=== PATIENT | female | born 1990 ===

== ENCOUNTER 2018-01-23 08:35 | Outpatient (CLI) | payer OTHER ==
--- NOTE | 2018-01-23 09:31 | Ultrasound Report ---
LEFT BREAST ULTRASOUND: 01/23/18 08:35:00 CLINICAL: 27-year-old with a an upper outer breast lump COMPARISON: None. FINDINGS: Ultrasoundof the upper outer quadrant of the left breast was performed and demonstrated normal fibroglandular and fatty structures. No mass, cyst or shadowing. I examined her myself and felt lumpy but normal breast tissue. IMPRESSION: Negative left breast ultrasound. BI-RADS 1 - - Negative RECOMMENDATION: Clinical followup and routine mammographic screening baseline ACS guidelines.
== END 2018-01-23 08:36 | disposition home or self-care (01) ==
LOC: SPVWC 08:35
PROVIDERS: ATTEND Nurse Practitioner Family
DX: N63.21 Unspecified lump in the left breast, upper outer quadrant (principal); R19.00 Intra-abdominal and pelvic swelling, mass and lump, unspecified site

== ENCOUNTER 2020-07-16 16:22 | Emergency (ER) | payer OTHER ==
[2020-07-16 16:36] VITALS: BP 110/79
--- NOTE | 2020-07-16 17:40 | Emergency Department Report ---
ED Head Trauma HPI - General Chief complaint: Head Injury Stated complaint: FELL DOWN STAIRS/HIT HEAD Time Seen by Provider: 07/16/20 17:24 Source: patient Mode of arrival: Ambulatory Limitations: No Limitations - History of Present Illness Initial comments: pt is a 30 yo female who presents to the ED with c/o hitting her head around 3:30 PM today. she states she was walking down the steps in her house. she states she accidentally misstepped on the very last step and hit her head on the stairs. she states she was able to get up and ambulate immediately. she states she took a tylenol for a mild headache and her symptoms improved. she denies any LOC, n/v, vision changes, photophobia, numbness, weakness, bowel or bladder incontinence, speech disturbance, gait disturbance, neck pain or back pain. no pmhx. no allergies to meds. LNMP 06/26/2020. she states she presents just to make sure she did not have a "concussion." - Related Data Previous Rx's Medication Instructions Recorded Last Taken Type Ferrous Sulfate [Feosol 325 MG tab] 325 mg PO BID #90 tablet 06/13/19 Unknown Rx Ibuprofen [Motrin 800 MG tab] 800 mg PO TID PRN #30 tablet 06/13/19 Unknown Rx oxyCODONE /ACETAMINOPHEN [Percocet 1 - 2 tab PO Q6HR PRN #14 tablet 06/13/19 Unknown Rx 5/325 mg] Allergies/Adverse reactions: Allergies Allergy/AdvReac Type Severity Reaction Status Date / Time No Known Allergies Allergy Verified 07/16/20 16:32 ED Review of Systems ROS: Stated complaint: FELL DOWN STAIRS/HIT HEAD Other details as noted in HPI Comment: All other systems reviewed and negative ED Past Medical Hx - Past Medical History Hx Hypertension: No Hx Congestive Heart Failure: No Hx Diabetes: No Hx Deep Vein Thrombosis: No Hx Renal Disease: No Hx Sickle Cell Disease: No Hx Seizures: No Hx Asthma: No Hx COPD: No Hx HIV: No - Social History Smoking Status: Never Smoker Substance Use Type: None - Medications Home Medications: Home Medications Medication Instructions Recorded Confirmed Last Taken Type Ferrous Sulfate [Feosol 325 MG tab] 325 mg PO BID #90 tablet 06/13/19 Unknown Rx Ibuprofen [Motrin 800 MG tab] 800 mg PO TID PRN #30 tablet 06/13/19 Unknown Rx oxyCODONE /ACETAMINOPHEN [Percocet 1 - 2 tab PO Q6HR PRN #14 tablet 06/13/19 Unknown Rx 5/325 mg] ED Physical Exam - General Limitations: No Limitations General appearance: alert, in no apparent distress - Head Head exam: Present: atraumatic, normocephalic - Eye Eye exam: Present: normal appearance, PERRL, EOMI. Absent: periorbital swelling, periorbital tenderness Pupils: Present: normal accommodation, other (no raccoon eyes) - ENT ENT exam: Present: mucous membranes moist, other (no flores signs ) - Neck Neck exam: Present: normal inspection, full ROM. Absent: tenderness - Respiratory Respiratory exam: Present: normal lung sounds bilaterally. Absent: respiratory distress, wheezes, rales, rhonchi, stridor, chest wall tenderness, accessory muscle use, decreased breath sounds, prolonged expiratory - Cardiovascular Cardiovascular Exam: Present: regular rate, normal rhythm, normal heart sounds. Absent: systolic murmur, diastolic murmur, rubs, gallop - Back Exam Back exam: Present: normal inspection, full ROM. Absent: paraspinal tenderness, vertebral tenderness - Neurological Exam Neurological exam: Present: alert, oriented X3, CN II-XII intact, normal gait. Absent: motor sensory deficit - Expanded Neurological Exam Expanded Patient oriented to: Present: person, place, time Speech: Present: fluid speech Cranial nerves: EOM's Intact: Normal, Gag Reflex: Normal, Tongue Deviation: Normal, Facial Sensation: Normal Cerebellar function: Finger to Nose: Normal, Heel to Mustafa: Normal, Romberg: Normal Sensory exam: Upper Extremity Light Touch: Normal, Upper Extremity Pin Prick: Normal, Upper Extremity Temperature: Normal, UE 2 Point Discrimination: Normal, Lower Extremity Light Touch: Normal, Lower Extremity Pin Prick: Normal, Lower Extremity Temperature: Normal, LE 2 Point Discrimination: Normal Motor strength exam: RUE: 5, LUE: 5, RLE: 5, LLE: 5 Best Eye Response ([place]): (4) open spontaneously Best Motor Response ([place]): (6) obeys commands Best Verbal Response ([place]): (5) oriented [place] Total: 15 - Psychiatric Psychiatric exam: Present: normal affect, normal mood - Skin Skin exam: Present: warm, dry, intact ED Course Vital Signs 07/16/20 16:32 Temperature 98.3 F Pulse Rate 87 Respiratory 20 Rate Blood Pressure 110/79 O2 Sat by Pulse 100 Oximetry - Medical Decision Making pt is a 30 yo female who presents to the ED with c/o hitting her head around 3:30 PM today. she states she was walking down the steps in her house. she states she accidentally misstepped on the very last step and hit her head on the stairs. she states she was able to get up and ambulate immediately. she states she took a tylenol for a mild headache and her symptoms improved. she denies any LOC, n/v, vision changes, photophobia, numbness, weakness, bowel or bladder incontinence, speech disturbance, gait disturbance, neck pain or back pain. no pmhx. no allergies to meds. LNMP 06/26/2020. she states she presents just to make sure she did not have a "concussion." Vitals are normal. No abnormality physical exam as documented in chart, no neurological deficits. [place] CT head rule is 0, CT head imaging is recommended. Nexus criteria negative, C- spine can be cleared clinically. This is likely related to a mild/minor head injury. No signs of hematoma. No signs of basilar skull fracture. Do not suspect intercranial hemorrhage. Patient observed in the emergency department and given juice and was able to tolerate p.o. intake without difficulty, she states that she is feeling fine and ready to go home, she has not had any changes since being observed in the ED. Discussed very strict return precautions in detail with patient. Advised patient may take tylenol as needed for headache. may use ice for 15 minutes at a time. follow up with a primary care doctor for reexamination. return to the emergency room immediately for any new or worsening symptoms including but not limited to loss of consciousness, dizziness, vomiting, vision changes, numbness, weakness, lethargic, worsening headache, etc. [place] CT Head Injury/Trauma Rule from [email or web address] on 07/16/2020 All calculations should be rechecked by clinician prior to use RESULT SUMMARY: CT Unnecessary The [place] Head CT Rule suggests a head CT is not necessary for this patient (sensitivity 83-100% for all intracranial traumatic findings, sensitivity 100% for findings requiring neurosurgical intervention). INPUTS: Age > 0 = No Patient on blood thinners > 0 = No Seizure after injury > 0 = No GCS > 0 = No Suspected open or depressed skull fracture > 0 = No Any sign of basilar skull fracture? > 0 = No ?2 episodes of vomiting > 0 = No Age ?65 years > 0 = No Retrograde amnesia to the event ? 30 minutes > 0 = No Dangerous mechanism? > 0 = No - NEXUS Criteria Focal neurological deficit present: No Midline spinal tenderness present: No Altered level of consciousness: No Intoxication present: No Distracting injury present: No NEXUS results: C-Spine can be cleared clinically by these results. Imaging is not required. Critical care attestation.: If time is entered above; I have spent that time in minutes in the direct care of this critically ill patient, excluding procedure time. ED Disposition Clinical Impression: Minor head injury without loss of consciousness Qualifiers: Encounter type: initial encounter Qualified Code(s): S09.90XA - Unspecified injury of head, initial encounter Disposition: DC-01 TO HOME OR SELFCARE Is pt being admited?: No Does the pt Need Aspirin: No Condition: Stable Instructions: Head Injury, Adult Additional Instructions: may take tylenol as needed for headache. may use ice for 15 minutes at a time. follow up with a primary care doctor for reexamination. return to the emergency room immediately for any new or worsening symptoms including but not limited to loss of consciousness, dizziness, vomiting, vision changes, numbness, weakness, lethargic, worsening headache, etc. Referrals: PRIMARY CARE, [Primary Care Provider] - 2-3 Days Time of Disposition: 18:23 Print Language: LAO
== END 2020-07-16 18:40 | disposition home or self-care (01) ==
LOC: ED 16:22
DX: S09.90XA Unspecified injury of head, initial encounter (principal); Z79.1 Long term (current) use of non-steroidal anti-inflammatories (NSAID); Z79.899 Other long term (current) drug therapy; W22.8XXA Striking against or struck by other objects, initial encounter; Y93.89 Activity, other specified; Y92.89 Other specified places as the place of occurrence of the external cause; Y99.8 Other external cause status
CPT/HCPCS: 99282

== ENCOUNTER 2021-05-05 09:51 | Emergency (ER) | payer OTHER ==
[2021-05-05] MEDS ORDERED: IBUPROFEN 800 MG TAB PO ONE (10:13)
--- NOTE | 2021-05-05 10:13 | Emergency Department Report ---
Minor Respiratory - HPI Chief Complaint: Dyspnea/Respdistress Stated Complaint: ST, COUGH Time Seen by Provider: 05/05/21 10:00 Pain Location: Throat, Other Severity: mild Minor Respiratory: Yes Sore Throat, Yes Able to Tolerate Fluids, Yes Sick Contacts, No Rhinorrhea, No Ear Pain, No Cough, No Hemoptysis, No Chest Pain, No Shortness of Breath, No Fever Other History: 30 YO COMES TO ER WITH HER CHILD. BOTH WITH SAME SYMTPOMS. SORE THROAT THAT COMES AND GOES. NO COUGH. NO FEVER. NO CHILLS. NO ABD PAIN. NO BACK PAIN. HAS NOT SEEN PCP. 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 Systems ROS: Stated complaint: ST, COUGH Other details as noted in HPI Comment: All other systems reviewed and negative ED Past Medical Hx - Past Medical History Hx Hypertension: No Hx Congestive Heart Failure: No Hx Diabetes: No Hx Deep Vein Thrombosis: No Hx Renal Disease: No Hx Sickle Cell Disease: No Hx Seizures: No Hx Asthma: No Hx COPD: No Hx HIV: No - Social History Smoking Status: Never Smoker Substance Use Type: None - Medications Home Medications: Home Medications Medication Instructions Recorded Confirmed Last Taken Type Ferrous Sulfate [Feosol 325 MG tab] 325 mg PO BID #90 tablet 06/13/19 Unknown Rx Ibuprofen [Motrin 800 MG tab] 800 mg PO TID PRN #30 tablet 06/13/19 Unknown Rx oxyCODONE /ACETAMINOPHEN [Percocet 1 - 2 tab PO Q6HR PRN #14 tablet 06/13/19 Unknown Rx 5/325 mg] Minor Respiratory Exam - Exam General: Vital signs noted. No distress. Alert and acting appropriately. HEENT: Yes Moist Mucous Membranes, No Pharyngeal Erythema, No Pharyngeal Exudates, No Rhinorrhea, No Conjuctival Injection, No Frontal Tenderness, No Maxillary Tenderness Ear: Neither TM Bulge, Neither TM Erythema, Neither EAC Pain, Neither EAC Discharge Neck: Yes Supple, No Adenopathy Lungs: Yes Good Air Exchange, No Wheezes, No Ronchi, No Stridor, No Cough, No Labored Respirations, No Retractions, No Use of Accessory Muscles, No Other Abnormal Lung Sounds Heart: Yes Regular, No Murmur Abdomen: Yes Normal Bowel Sounds, No Tenderness, No Peritoneal Signs Skin: No Rash, No Edema Neurologic: Alert and oriented, no deficits. Musculoskeletal: Unremarkable. ED Course Vital Signs 05/05/21 09:52 Temperature 99.3 F Pulse Rate 117 H Respiratory 18 Rate Blood Pressure 134/89 [Right] O2 Sat by Pulse 100 Oximetry ED Medical Decision Making - Medical Decision Making HER ON PROVIDER EXAM 90 DC HOME WITH OVER THE COUNTER S/S MANAGEMENT NO FEVER NO COUGH AMBULATORY NON ILL NON TOXIC TAKING PO NO INDICATION FOR ANTIBIOTICS AT THIS TIME DID NOT GET FLU OR COVID IMMUNIZATION NO BODY ACHES OF FEVER NO N/V/D DC HOME WITH DC PLAN OF CARE INCLUDING PCP FOLLOW UP, OVER THE COUNTER SYMPTOM RELIEF AND MONITORING PT VERBALIZES UNDERSTANDING - Differential Diagnosis URI Critical care attestation.: If time is entered above; I have spent that time in minutes in the direct care of this critically ill patient, excluding procedure time. ED Disposition Clinical Impression: Viral URI Disposition: 01 HOME / SELF CARE / HOMELESS Is pt being admited?: No Does the pt Need Aspirin: No Condition: Stable Instructions: Viral Respiratory Infection, [id number] Additional Instructions: MOTRIN OR TYLENOL FOR PAIN OVER THE COUNTER COUGH MEDS IF NEEDED COOL MIST HUMIDIFICATION TO ROOM FOLLOW UP WITH PCP NEXT WEEK REFERRAL BELOW DIET AND ACTIVITY TOLERATED Referrals: REESE CALDERÓN MD [Staff Physician] - 3-5 Days Time of Disposition: 10:10
[2021-05-05 11:56] VITALS: BP 130/72
== END 2021-05-05 11:56 | disposition home or self-care (01) ==
LOC: ED 09:51
DX: J06.9 Acute upper respiratory infection, unspecified (principal)
CPT/HCPCS: 99282

== ENCOUNTER 2021-10-13 01:21 | Emergency (ER) | payer OTHER ==
--- NOTE | 2021-10-13 08:59 | Emergency Department Report ---
- General Chief Complaint: Earache Stated Complaint: EAR AIR PRESSURE Source: patient Mode of arrival: Ambulatory Limitations: No Limitations - History of Present Illness Initial Comments: 31-year-old female presents to the ED with complaint of bilateral ear pain , facial pain , days, intermittent cough 10 days. Patient states that she feels as though her ears have air pressure in them. 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 Patient states that she has not tried any [id number] medication. Denies any fever, chills ,shortness of breath or chest pain. Patient is alert and oriented x3. No acute distress noted. No ill appearance noted. MD Complaint: nasal congestion, sinus pain Onset/Timin -: Gradual Severity: mild Severity scale (0 -10): 5 Quality: aching Consistency: intermittent Improves With: nothing Worsens With: nothing Associated Symptoms: cough - Related Data Previous Rx's Medication Instructions Recorded Last Taken Type Ferrous Sulfate [Feosol 325 MG tab] 325 mg PO BID #90 tablet 06/13/19 Unknown Rx Amoxicillin/K Clav Tab [Augmentin 1 tab PO Q12HR 10 Days #20 tab 10/13/21 Unknown Rx 875 mg] Cetirizine HCl/Pseudoephedrine 1 each PO BID 15 Days #30 tab 10/13/21 Unknown Rx [Zyrtec-D Tablet] predniSONE [Deltasone] 50 mg PO QDAY 5 Days #5 tab 10/13/21 Unknown Rx Allergies Allergy/AdvReac Type Severity Reaction Status Date / Time No Known Allergies Allergy Verified 10/13/21 03:03 ED Review of Systems ROS: Stated complaint: EAR AIR PRESSURE Other details as noted in HPI Constitutional: denies: chills, fever Eyes: eye pain. denies: eye discharge, vision change ENT: denies: ear pain, throat pain Respiratory: denies: cough, shortness of breath, wheezing Cardiovascular: denies: chest pain, palpitations Endocrine: no symptoms reported Gastrointestinal: denies: abdominal pain, nausea, diarrhea Genitourinary: denies: urgency, dysuria, discharge Musculoskeletal: denies: back pain, joint swelling, arthralgia Skin: denies: rash, lesions Neurological: denies: headache, weakness, paresthesias Psychiatric: denies: anxiety, depression Hematological/Lymphatic: denies: easy bleeding, easy bruising ED Past Medical Hx - Past Medical History Previous Medical History?: No Hx Hypertension: No Hx Congestive Heart Failure: No Hx Diabetes: No Hx Deep Vein Thrombosis: No Hx Renal Disease: No Hx Sickle Cell Disease: No Hx Seizures: No Hx Asthma: No Hx COPD: No Hx HIV: No - Surgical History Past Surgical History?: No - Social History Smoking Status: Never Smoker Substance Use Type: None - Medications Home Medications: Home Medications Medication Instructions Recorded Confirmed Last Taken Type Ferrous Sulfate [Feosol 325 MG tab] 325 mg PO BID #90 tablet 06/13/19 Unknown Rx Amoxicillin/K Clav Tab [Augmentin 1 tab PO Q12HR 10 Days #20 tab 10/13/21 Unk nown Rx 875 mg] Cetirizine HCl/Pseudoephedrine 1 each PO BID 15 Days #30 tab 10/13/21 Unknown Rx [Zyrtec-D Tablet] predniSONE [Deltasone] 50 mg PO QDAY 5 Days #5 tab 10/13/21 Unknown Rx ED Physical Exam - General Limitations: No Limitations General appearance: alert, in no apparent distress - Head Head exam: Present: atraumatic, normocephalic - Eye Eye exam: Present: normal appearance - ENT ENT exam: Present: mucous membranes moist - Expanded ENT Exam Expanded TM/Canal exam: Effusion: Left TM, Cerumen Impaction: Right TM, Mastoid Tenderness: Right TM, Left TM (maxillary) Throat exam: Positive: tonsillar erythema - Neck Neck exam: Present: normal inspection - Respiratory Respiratory exam: Present: normal lung sounds bilaterally. Absent: respiratory distress - Cardiovascular Cardiovascular Exam: Present: regular rate, normal rhythm. Absent: systolic murmur, diastolic murmur, rubs, gallop - GI/Abdominal GI/Abdominal exam: Present: soft, normal bowel sounds - Extremities Exam Extremities exam: Present: normal inspection - Back Exam Back exam: Present: normal inspection - Neurological Exam Neurological exam: Present: alert, oriented X3 - Psychiatric Psychiatric exam: Present: normal affect, normal mood - Skin Skin exam: Present: warm, dry, intact, normal color. Absent: rash ED Course Vital Signs 10/13/21 03:00 Temperature 98.6 F Pulse Rate 85 Respiratory 8 L Rate Blood Pressure 124/69 O2 Sat by Pulse 100 Oximetry ED Medical Decision Making - Medical Decision Making 31-year-old female presents to the ED with complaint of bilateral ear pain , facial pain , days, intermittent cough 10 days. Patient states that she feels as though her ears have air pressure in them. 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 Patient states that she has not tried any [id number] medication. Patient states that cough has resolved. denies any fever, chills ,shortness of breath or chest pain. Patient is alert and oriented x3. No acute distress noted. No ill appearance noted. My physical examination patient has a right serum impaction. Tenderness upon palpation noted to the maxillary sinuses cavity. Left ear effusion noted. Rechecked the patient is resting quietly quietly and comfortable and feeling better. I discussed the results of diagnostic study, my clinical impression and the plan for further treatment with the patient. Patient agrees with plan and d ischarge at this present time. All question addressed. I have given the patient instruction regarding a diagnosis ,expectation ,follow- up and return precaution. I explained to the patient that emergent condition may arise and to return to the ED for new worsen and any new persisting condition. I have explained the importance of following up with the primary care physician or referral physician listed below has instructed. The patient verbalized understanding of discharge instruction. Critical care attestation.: If time is entered above; I have spent that time in minutes in the direct care of this critically ill patient, excluding procedure time. ED Disposition Clinical Impression: Impacted cerumen of right ear Maxillary sinusitis, acute Qualifiers: Recurrence: non-recurrent Qualified Code(s): J01.00 - Acute maxillary sinusitis, unspecified Disposition: 01 HOME / SELF CARE / HOMELESS Is pt being admited?: No Does the pt Need Aspirin: No Condition: Stable Instructions: Sinusitis, Adult, [id number], How to Perform a Sinus Rinse, Zapx-[id number], Earwax Buildup, Adult, Carbamide Peroxide ear solution Additional Instructions: Take medication as prescribed Return to the ED for any worsening symptom Prescriptions: Amoxicillin/K Clav Tab [Augmentin 875 mg] 1 tab PO Q12HR 10 Days #20 tab predniSONE [Deltasone] 50 mg PO QDAY 5 Days #5 tab Cetirizine HCl/Pseudoephedrine [Zyrtec-D Tablet] 1 each PO BID 15 Days #30 tab Referrals: [facility] [Provider Group] - 3-5 Days Forms: Work/School Release Form(ED) Time of Disposition: 09:05
[2021-10-13 10:01] VITALS: BP 136/57
== END 2021-10-13 10:02 | disposition home or self-care (01) ==
LOC: ED 01:21
DX: H61.21 Impacted cerumen, right ear (principal); J01.00 Acute maxillary sinusitis, unspecified
CPT/HCPCS: 99282